=== PATIENT | male | born 1970 | race Caucasian/White ===

== ENCOUNTER 2017-12-29 21:15 | Emergency (ER) | payer OTHER ==
[~2017-12-29] VITALS: Ht 177.8 cm; Wt 137.6 kg
[~2017-12-29 21:15] MED LIST: oxyCODONE PO
[2017-12-29 21:53] LABS: HEMATOCRIT 45.3 % (38.0-50.0); HEMOGLOBIN 15.4 G/DL (12.5-16.6); MCH 28.4 PG (29.0-34.0); MCV 83.4 FL (86-99); PLATELET COUNT 249 K/uL (156-360); RBC DIS.WIDTH-CV 12.5 % (11.8-14.6); RBC DIS.WIDTH-SD 37.5 % (39-53); RED BLOOD COUNT 5.43 M/uL (4.00-5.50)
[2017-12-29 22:11] LABS: CHLORIDE 107 mEq/L (99-109); POTASSIUM 3.9 mEq/L (3.7-5.4); SODIUM 141 mEq/L (136-147)
[2017-12-29 22:13] LABS: GLUCOSE 118 mg/dL (70-99); TROP-I INTERPRETATION NEGATIVE; TROPONIN-I < 0.01 ng/mL (0.0-0.30)
[2017-12-29 22:17] LABS: CREATININE 1.1 mg/dL (0.6-1.3); GFR ESTIMATE (CALCULATED) > 59 mL/min/ (58.99-99999)
[2017-12-29 22:18] LABS: UREA NITROGEN (BUN) 13 mg/dL (9-23)
[2017-12-29 23:06] LABS: D-DIMER ELISA < 150.00 ng/mLDDU (<230)
[2017-12-30 02:20] LABS: TROP-I INTERPRETATION NEGATIVE; TROPONIN-I < 0.01 ng/mL (0.0-0.30)
[2017-12-30] MEDS ORDERED: CHILD ASPIRIN81 M1 PO (02:23)
[2017-12-30 02:37] VITALS: BP 145/90
== END 2017-12-30 02:38 | disposition home or self-care (01) ==
LOC: EME 21:15
PROVIDERS: Physician Assistant
DX: R07.89 Other chest pain (principal); Z73.3 Stress, not elsewhere classified; R20.2 Paresthesia of skin; R06.02 Shortness of breath; R42 Dizziness and giddiness; Z82.49 Family history of ischemic heart disease and other diseases of the circulatory system
CPT/HCPCS: 71046; 80048; 84484; 85027; 85379; 93005; 99281; 99284